=== PATIENT | female | born 1970 | race African-American/Black ===

== ENCOUNTER 2019-05-25 22:49 | Emergency (ER) | payer MEDICAID ==
[~2019-05-25] VITALS: Ht 188 cm; Wt 90.7 kg
--- NOTE | 2019-05-25 22:50 | NUR ---
ED Nurse Note: pt presents to ED via EMS arrival [facility] RA 68 for head pain and L leg numbness. pt states that she is experiencing nonradiating pain in the L side of her head. pt denies any trauma or injury to the area. pt describes the pain as "throbbing" and rates it a 7/10 that has been constant for the past few days. pt denies any visual disturbances at this time
[2019-05-25 23:03] VITALS: BP 165/110
--- NOTE | 2019-05-25 23:43 | Emergency Room Report ---
History of Present Illness General Chief Complaint: Headache Source: Patient Present Illness HPI This a 49-year-old female with history of HIV. Her viral load is undetectable. Her CD4 count is high. She is compliant with her HIV medication. She presents with treatment of headache. She was concerned that she may have a stroke because she has family history of stroke. Complains of throbbing pain to the left side of the head. On and off for last 2 days. No fever chills. No nausea no vomiting. No focal deficit. Pain was 8 out of 10. Better with ibuprofen. Mild pain now. Allergies: Coded Allergies: No Known Allergies (Unverified , 05/25/19) UNABLE TO ASSESS (Unverified , 06/30/13) Patient History Past Medical History: see triage record, old chart reviewed, HIV Past Surgical History: other Pertinent Family History: none Social History: Denies: smoking Last Menstrual Period: NA Now: No : 0 Para: 0 Immunizations: other Reviewed Nursing Documentation: PMH: Agreed; PSxH: Agreed Nursing Documentation-PMH History Of Psychiatric Problem: Yes - anxiety Hx Neurological Problems: No - HIV Review of Systems Eye: Denies: eye pain, blurred vision ENT: Denies: ear pain, nose congestion, throat swelling Respiratory: Denies: cough, shortness of breath Cardiovascular: Denies: chest pain, palpitations Gastrointestinal: Denies: abdominal pain, diarrhea, nausea, vomiting Musculoskeletal: Denies: back pain, joint pain Skin: Denies: rash Neurological: Reports: headache; Denies: numbness Endocrine: Denies: increased thirst, increased urine Hematologic/Lymphatic: Denies: easy bruising All Other Systems: negative except mentioned in HPI Physical Exam Vital Signs Date Time Temp Pulse Resp B/P (MAP) Pulse Ox O2 Delivery O2 Flow Rate FiO2 05/25/19 22:45 99.0 93 18 165/110 (128) 98 Room Air Vitals with high blood pressure Sp02 EP Interpretation: reviewed, normal General Appearance: well appearing, no apparent distress, alert Head: normocephalic, atraumatic Eyes: bilateral eye PERRL, bilateral eye EOMI ENT: hearing grossly normal, normal pharynx Neck: full range of motion, supple, no meningismus Respiratory: chest non-tender, lungs clear, normal breath sounds Cardiovascular #1: regular rate, rhythm, no murmur Gastrointestinal: normal bowel sounds, non tender, no mass, no organomegaly, no bruit, non-distended Musculoskeletal: back normal, normal range of motion, gait/station normal Psychiatric: mood/affect normal Medical Decision Making Diagnostic Impression: Primary Impression: Headache Qualified Codes: G44.209 - Tension-type headache, unspecified, not intractable Additional Impression: Hypertension Qualified Codes: I10 - Essential (primary) hypertension ER Course This patient presents with headache. No red flags indicate TIA or CVA. No bleed or neoplastic process. No evidence of meningitis. She looks well. Will discharge home. CT/MRI/US Diagnostic Results CT/MRI/US Diagnostic Results : Imaging Test Ordered: CT head Impression Negative per radiologist Last Vital Signs Date Time Temp Pulse Resp B/P (MAP) Pulse Ox O2 Delivery O2 Flow Rate FiO2 05/25/19 23:03 99.0 85 18 165/110 98 Room Air Status: improved Disposition: HOME, SELF-CARE Condition: Stable Scripts Ibuprofen* (MOTRIN*) 600 Mg Tablet 600 MG ORAL THREE TIMES A DAY, #30 TAB 0 Refills Prov: Ulises Salguero MD 05/25/19 Patient Instructions: Tension Headache Additional Instructions: Follow-up with your doctor in 7 days. Return if symptoms worsen. Ulises Salguero MD May 25, 2019 23:43
[2019-05-25] MEDS ORDERED: IBUPROFEN600 MG ORAL (23:48)
--- NOTE | 2019-05-26 00:21 | Diagnostic Imaging Report ---
Indication: Headache Technique: Contiguous 5 mm thick transaxial imaging of the head obtained in a Siem[employer] Sensation [address] scanner. Soft tissue and bone windows generated. Automatic Exposure Control was utilized. Total Dose length Product (DLP): 1669.[address] Dose Index Volume (CTDIvol): 62.7 mGy Comparison: none Findings: The size and configuration of the cortical sulci, basal cisterns, and ventricles are within normal limits for age. There is no mass effect, midline shift, or edema identified. There is no evidence of acute hemorrhage or abnormal intra-axial or extra-axial fluid collections. The bones and soft tissues are unremarkable. Impression: No mass effect, edema or acute bleed. The CT scanner at [facility] is accredited by the [employer] and the scans are performed using dose optimization techniques as appropriate to a performed exam including Automatic Exposure control.
[2019-05-26 00:40] VITALS: BP 165/110
--- NOTE | 2019-05-26 00:40 | NUR ---
ED Nurse Note: Pt cleared by health care Provider for discharge. DC instructions/prescription was given and explained to pt. pt verbalized understanding of teachings. All medical deviecs such as ID band removed. Pt is AAO x4, ambulatory and left with all personal belongings.
== END 2019-05-26 00:40 | disposition home or self-care (01) ==
LOC: EDBD 22:49 → EMR 23:37
DX: G44.209 Tension-type headache, unspecified, not intractable (principal); I10 Essential (primary) hypertension; B20 Human immunodeficiency virus [HIV] disease; Z79.899 Other long term (current) drug therapy
CPT/HCPCS: 70450; Z7502; 99284